=== PATIENT | male | born 1940 | race Caucasian/White ===

== ENCOUNTER → 2018-03-30 13:05 | Outpatient (CLI) | payer OTHER ==
[~2018-03-30 13:05] MED LIST: APAP325 MG PO; ASPIRIN EC81 M1 PO; ASPIRIN325 MG PO; BIOTIN5 MG PO; CARDIZEM 90 MG90 MG PO; FOLTX TABLET1 EACH PO; GLUCOTROL 5 MG T5 MG PO; IBUPROFEN200 MG PO; JANUVIA100 MG PO; NORCO 7.5/325 T1 TA1 PO; OMEPRAZOLE20 M1 PO
[2018-04-25 13:08] VITALS: BMI 28.6
== END | disposition home or self-care (01) ==
LOC: D.LABREF 13:05
DX: M16.12 Unilateral primary osteoarthritis, left hip (principal); Z11.8 Encounter for screening for other infectious and parasitic diseases

== ENCOUNTER 2018-04-13 09:30 | Inpatient (IN) | payer MEDICARE, OTHER ==
[~2018-04-13] VITALS: Ht 177.8 cm; Wt 90.9 kg
[~2018-04-13 09:30] MED LIST changes: -APAP325 MG PO; -ASPIRIN325 MG PO; -FOLTX TABLET1 EACH PO; -JANUVIA100 MG PO; -NORCO 7.5/325 T1 TA1 PO
[2018-04-13 12:34] LABS: BASOPHILS 0.3 % (0-2); EOSINOPHILS 1.5 % (0-7); HEMATOCRIT 45.3 % (42.0-54.0); HEMOGLOBIN 15.6 g/dL (13.5-17.5); IMMATURE GRANULOCYTES 0.1 % (0-5); MCH 31.5 pg (26.0-34.0); MCHC 34.4 g/dL (31.0-37.0); MCV 91.5 fL (80.0-100.0); MEAN PLATELET VOLUME 10.9 fL (7.4-10.4); MONOCYTES 9.5 % (2-11); NEUTROPHILS 58.6 % (40-80); RBC 4.95 10x6/uL (4.20-6.10); RDW 12.9 % (11.5-14.5); WBC 7.2 10x3/uL (4.8-10.8)
[2018-04-13 12:40] LABS: APTT 26.8 SECONDS (22.8-39.4); INR 1.01 (0.85-1.17); PROTIME 12.9 SECONDS (11.6-15.0)
[2018-04-13 13:01] LABS: CALC OSMOLALITY 283 mosm/kg (275-300); CALCIUM 8.9 mg/dL (8.5-10.1); CARBON DIOXIDE 27.3 mmol/L (21.0-32.0); CHLORIDE - SERUM 104 mmol/L (98-107); GLUCOSE 128 mg/dL (74-106); POTASSIUM - SERUM 4.3 mmol/L (3.5-5.1); SODIUM 141 mmol/L (136-145); UREA NITROGEN 16 mg/dL (7-18); eGFR NON AFRICAN AMERICAN 76 mL/min (90-120)
[2018-04-13 13:03] LABS: PLATELET COUNT 189 10x3/uL (130-400)
[2018-04-13 13:09] LABS: APPEARANCE CLEAR (CLEAR); COLOR YELLOW (YELLOW)
[2018-04-13 13:10] LABS: BILIRUBIN NEGATIVE (NEGATIVE); GLUCOSE NEGATIVE (NEGATIVE); KETONE NEGATIVE (NEGATIVE); NITRITE NEGATIVE (NEGATIVE); PROTEIN NEGATIVE (NEGATIVE); UROBILINOGEN NORMAL (NORMAL)
[2018-04-20] MEDS ORDERED: JANUVIA100 MG PO (06:23)
[2018-04-20 06:33] VITALS: BMI 28.7
[2018-04-20 15:49] VITALS: BP 127/69; Ht 177.8 cm; Wt 90.9 kg
[2018-04-20 16:32] LABS: BASOPHILS 0 % (0-2); EOSINOPHILS 0 % (0-7); HEMATOCRIT 41.7 % (42.0-54.0); HEMOGLOBIN 14.3 g/dL (13.5-17.5); IMMATURE GRANULOCYTES 0.2 % (0-5); LYMPHOCYTES 3.3 % (15-50); MCH 31.3 pg (26.0-34.0); MCHC 34.3 g/dL (31.0-37.0); MCV 91.2 fL (80.0-100.0); MEAN PLATELET VOLUME 11.1 fL (7.4-10.4); MONOCYTES 3.3 % (2-11); NEUTROPHILS 93.2 % (40-80); PLATELET COUNT 180 10x3/uL (130-400); RBC 4.57 10x6/uL (4.20-6.10); RDW 12.7 % (11.5-14.5); WBC 12.9 10x3/uL (4.8-10.8)
[2018-04-20 16:34] LABS: ANION GAP 18.7 mmol/L (8-16); CALCIUM 8.3 mg/dL (8.5-10.1); CARBON DIOXIDE 20.8 mmol/L (21.0-32.0); CREATININE - SERUM 1.1 mg/dL (0.6-1.3); POTASSIUM - SERUM 4.5 mmol/L (3.5-5.1)
[2018-04-20 16:57] VITALS: BP 127/69
[2018-04-20 21:11] VITALS: BP 156/89
[2018-04-21 06:26] VITALS: BP 134/74
[2018-04-21 06:38] LABS: BASOPHILS 0 % (0-2); EOSINOPHILS 0 % (0-7); HEMATOCRIT 36.9 % (42.0-54.0); HEMOGLOBIN 12.7 g/dL (13.5-17.5); IMMATURE GRANULOCYTES 0.3 % (0-5); LYMPHOCYTES 4.7 % (15-50); MCHC 34.4 g/dL (31.0-37.0); MONOCYTES 8.3 % (2-11); NEUTROPHILS 86.7 % (40-80); PLATELET COUNT 197 10x3/uL (130-400); RDW 12.7 % (11.5-14.5)
[2018-04-21 07:15] LABS: ALBUMIN 3.1 g/dL (3.4-5.0); ALKALINE PHOSPHATASE 78 U/L (46-116); ALT (SGPT) 58 U/L (10-68); BILIRUBIN - TOTAL 0.56 mg/dL (0.2-1.3); CALC OSMOLALITY 276 mosm/kg (275-300); CALCIUM 8.4 mg/dL (8.5-10.1); CARBON DIOXIDE 23.8 mmol/L (21.0-32.0); CHLORIDE - SERUM 101 mmol/L (98-107); POTASSIUM - SERUM 4.1 mmol/L (3.5-5.1); PROTEIN - SERUM 6.5 g/dL (6.4-8.2); SODIUM 134 mmol/L (136-145); UREA NITROGEN 14 mg/dL (7-18); eGFR NON AFRICAN AMERICAN 76 mL/min (90-120)
[2018-04-21 07:16] LABS: GLUCOSE 246 mg/dL (74-106)
[2018-04-21 08:45] VITALS: BP 118/68
[2018-04-21] MEDS ORDERED: ASPIRIN325 MG PO (12:19)
== END 2018-04-21 14:30 | disposition home health service (06) | DRG 470 ==
LOC: D.SDCHOLD 09:30 → D.MS 04-20 05:00 → D.SDCHOLD 04-20 05:00 → D.MS 04-20 15:42
PROVIDERS: Family Medicine; Orthopaedic Surgery
PROC: 0SRB0JZ Replacement of Left Hip Joint with Synthetic Substitute, Open Approach (ICD-10-PCS; principal; 2018-04-20 07:30)
DX: M16.12 Unilateral primary osteoarthritis, left hip (principal); K21.9 Gastro-esophageal reflux disease without esophagitis; E11.9 Type 2 diabetes mellitus without complications; I10 Essential (primary) hypertension; H91.90 Unspecified hearing loss, unspecified ear

== ENCOUNTER → 2018-04-22 13:55 | Outpatient (CLI) | payer MEDICARE, OTHER ==
[2018-04-20 15:49] VITALS: BMI 28.7
[~2018-04-22 13:55] MED LIST changes: +APAP325 MG PO; +ASPIRIN325 MG PO; +BACTRIM DS PO; +FOLTX TABLET1 EACH PO; +JANUVIA100 MG PO; +NORCO 7.5/325 T1 TA1 PO; +VIBRAMYCIN 100100 MG PO
[2018-04-22 14:11] LABS: HEMATOCRIT 33.9 % (42.0-54.0); HEMOGLOBIN 11.6 g/dL (13.5-17.5)
== END | disposition home or self-care (01) ==
LOC: D.LABREF 13:55
PROVIDERS: Pediatrics Pediatric Gastroenterology
DX: Z98.890 Other specified postprocedural states (principal)

== ENCOUNTER 2018-04-23 20:29 | Inpatient (IN) | payer MEDICARE, OTHER ==
[~2018-04-23] VITALS: Ht 177.8 cm; Wt 90.7 kg
[~2018-04-23 20:29] MED LIST changes: -APAP325 MG PO; -BACTRIM DS PO; -FOLTX TABLET1 EACH PO; -NORCO 7.5/325 T1 TA1 PO; -VIBRAMYCIN 100100 MG PO
[2018-04-23] MEDS ORDERED: NORCO 7.5/325 T1 TA1 PO (20:37)
[2018-04-23 21:20] LABS: BASOPHILS 0.2 % (0-2); EOSINOPHILS 1.3 % (0-7); HEMATOCRIT 34.1 % (42.0-54.0); HEMOGLOBIN 11.7 g/dL (13.5-17.5); IMMATURE GRANULOCYTES 0.3 % (0-5); LYMPHOCYTES 15.5 % (15-50); MCH 30.9 pg (26.0-34.0); MCHC 34.3 g/dL (31.0-37.0); MEAN PLATELET VOLUME 10.4 fL (7.4-10.4); MONOCYTES 9.8 % (2-11); NEUTROPHILS 72.9 % (40-80); RBC 3.79 10x6/uL (4.20-6.10); RDW 12.7 % (11.5-14.5); WBC 10.5 10x3/uL (4.8-10.8)
[2018-04-23 21:28] LABS: PLATELET COUNT 154 10x3/uL (130-400)
[2018-04-23 21:35] LABS: INR 1.01 (0.85-1.17); PROTIME 12.9 SECONDS (11.6-15.0)
[2018-04-23 21:36] LABS: D-DIMER-QUANTITATIVE 2.95 ug/mLFEU (0.20-0.54)
[2018-04-23 21:50] LABS: ALBUMIN 2.7 g/dL (3.4-5.0); ALKALINE PHOSPHATASE 96 U/L (46-116); ALT (SGPT) 64 U/L (10-68); BILIRUBIN - TOTAL 0.85 mg/dL (0.2-1.3); CALC OSMOLALITY 275 mosm/kg (275-300); CALCIUM 8.8 mg/dL (8.5-10.1); CHLORIDE - SERUM 99 mmol/L (98-107); CREATININE - SERUM 1.1 mg/dL (0.6-1.3); GLUCOSE 204 mg/dL (74-106); POTASSIUM - SERUM 3.7 mmol/L (3.5-5.1); PROTEIN - SERUM 6.6 g/dL (6.4-8.2); SODIUM 135 mmol/L (136-145); UREA NITROGEN 13 mg/dL (7-18); eGFR NON AFRICAN AMERICAN 68 mL/min (90-120)
[2018-04-23 22:01] LABS: C-REACTIVE PROTEIN 23.5 mg/dL (0.0-0.9); CKMB 0.6 U/L (0.0-3.6); CREATINE KINASE 455 UL (21-232); PRO BNP 226 pg/mL (0-450); TROPONIN-I < 0.017 ng/mL (0.000-0.060)
[2018-04-23 22:49] VITALS: BP 149/75
[2018-04-23 22:49] LABS: ERYTHROCYTE SEDIMENTATION RATE 53 mm/hr (0-20)
[2018-04-23 23:20] VITALS: BP 142/77
[2018-04-23 23:45] VITALS: BP 145/64
[2018-04-23] MEDS ORDERED: APAP325 MG PO (23:54)
[2018-04-23] MEDS ORDERED: FOLTX TABLET1 EACH PO (23:56)
[2018-04-24 00:37] VITALS: BP 145/64; BMI 28.7
[2018-04-24 04:00] VITALS: BP 131/74
[2018-04-24 09:10] VITALS: BP 147/77
[2018-04-24 10:53] LABS: APPEARANCE CLEAR (CLEAR); BILIRUBIN NEGATIVE (NEGATIVE); COLOR YELLOW (YELLOW); GLUCOSE 1000 mg/dL (NEGATIVE); KETONE NEGATIVE (NEGATIVE); NITRITE NEGATIVE (NEGATIVE); PROTEIN NEGATIVE (NEGATIVE); UROBILINOGEN NORMAL (NORMAL)
[2018-04-24 16:26] VITALS: BP 155/74
[2018-04-24 20:23] VITALS: BP 131/63
[2018-04-25 04:00] VITALS: BP 139/81
[2018-04-25 06:41] LABS: BASOPHILS 0.1 % (0-2); EOSINOPHILS 3.2 % (0-7); HEMATOCRIT 35.5 % (42.0-54.0); HEMOGLOBIN 12.3 g/dL (13.5-17.5); IMMATURE GRANULOCYTES 0.4 % (0-5); LYMPHOCYTES 14.1 % (15-50); MCH 31.2 pg (26.0-34.0); MCHC 34.6 g/dL (31.0-37.0); MCV 90.1 fL (80.0-100.0); MEAN PLATELET VOLUME 10.5 fL (7.4-10.4); MONOCYTES 12.1 % (2-11); NEUTROPHILS 70.1 % (40-80); RBC 3.94 10x6/uL (4.20-6.10); RDW 12.9 % (11.5-14.5)
[2018-04-25 07:03] LABS: ALBUMIN 2.5 g/dL (3.4-5.0); ALKALINE PHOSPHATASE 121 U/L (46-116); BILIRUBIN - TOTAL 1.15 mg/dL (0.2-1.3); C-REACTIVE PROTEIN 13.5 mg/dL (0.0-0.9); CALC OSMOLALITY 281 mosm/kg (275-300); CALCIUM 8.8 mg/dL (8.5-10.1); CARBON DIOXIDE 28.5 mmol/L (21.0-32.0); CHLORIDE - SERUM 104 mmol/L (98-107); GLUCOSE 197 mg/dL (74-106); PROTEIN - SERUM 6.5 g/dL (6.4-8.2); SODIUM 139 mmol/L (136-145); UREA NITROGEN 11 mg/dL (7-18)
[2018-04-25 07:05] LABS: ALT (SGPT) 137 U/L (10-68); CREATININE - SERUM 0.8 mg/dL (0.6-1.3); eGFR NON AFRICAN AMERICAN > 90 mL/min (90-120)
[2018-04-25 07:14] LABS: PLATELET COUNT 200 10x3/uL (130-400); WBC 7.3 10x3/uL (4.8-10.8)
[2018-04-25 08:08] VITALS: BP 133/75
[2018-04-25 13:08] VITALS: Ht 177.8 cm; Wt 90.7 kg
[2018-04-25 16:41] VITALS: BP 140/71
[2018-04-26 05:56] LABS: BASOPHILS 0.2 % (0-2); EOSINOPHILS 2.4 % (0-7); HEMATOCRIT 33.4 % (42.0-54.0); HEMOGLOBIN 11.5 g/dL (13.5-17.5); IMMATURE GRANULOCYTES 0.7 % (0-5); LYMPHOCYTES 14.7 % (15-50); MCH 30.9 pg (26.0-34.0); MCHC 34.4 g/dL (31.0-37.0); MCV 89.8 fL (80.0-100.0); MEAN PLATELET VOLUME 10.5 fL (7.4-10.4); MONOCYTES 11.2 % (2-11); NEUTROPHILS 70.8 % (40-80); PLATELET COUNT 229 10x3/uL (130-400); RBC 3.72 10x6/uL (4.20-6.10); RDW 13.1 % (11.5-14.5); WBC 8.4 10x3/uL (4.8-10.8)
[2018-04-26 06:50] LABS: ALBUMIN 2.4 g/dL (3.4-5.0); ALKALINE PHOSPHATASE 115 U/L (46-116); ALT (SGPT) 109 U/L (10-68); BILIRUBIN - TOTAL 0.91 mg/dL (0.2-1.3); CALCIUM 8.5 mg/dL (8.5-10.1); CARBON DIOXIDE 28.2 mmol/L (21.0-32.0); CHLORIDE - SERUM 99 mmol/L (98-107); GLUCOSE 224 mg/dL (74-106); POTASSIUM - SERUM 3.8 mmol/L (3.5-5.1); PROTEIN - SERUM 6.3 g/dL (6.4-8.2); SODIUM 135 mmol/L (136-145); eGFR NON AFRICAN AMERICAN 76 mL/min (90-120)
[2018-04-26 06:55] LABS: CALC OSMOLALITY 277 mosm/kg (275-300); UREA NITROGEN 15 mg/dL (7-18)
[2018-04-26 09:13] VITALS: BP 147/77
[2018-04-26 12:28] VITALS: BP 143/89
[2018-04-26 16:06] VITALS: BP 113/61
[2018-04-26 19:27] VITALS: BP 145/72
[2018-04-27 05:32] LABS: BASOPHILS 0.2 % (0-2); EOSINOPHILS 3.3 % (0-7); HEMATOCRIT 34.5 % (42.0-54.0); HEMOGLOBIN 11.8 g/dL (13.5-17.5); IMMATURE GRANULOCYTES 0.9 % (0-5); LYMPHOCYTES 13.8 % (15-50); MCH 30.7 pg (26.0-34.0); MCHC 34.2 g/dL (31.0-37.0); MCV 89.8 fL (80.0-100.0); MEAN PLATELET VOLUME 10.2 fL (7.4-10.4); MONOCYTES 12.5 % (2-11); NEUTROPHILS 69.3 % (40-80); PLATELET COUNT 247 10x3/uL (130-400); RBC 3.84 10x6/uL (4.20-6.10); RDW 13.1 % (11.5-14.5); WBC 8.5 10x3/uL (4.8-10.8)
[2018-04-27 05:54] LABS: ALBUMIN 2.6 g/dL (3.4-5.0); ALKALINE PHOSPHATASE 116 U/L (46-116); ALT (SGPT) 83 U/L (10-68); BILIRUBIN - TOTAL 1.02 mg/dL (0.2-1.3); C-REACTIVE PROTEIN 8.2 mg/dL (0.0-0.9); CALC OSMOLALITY 281 mosm/kg (275-300); CALCIUM 8.7 mg/dL (8.5-10.1); CARBON DIOXIDE 27.4 mmol/L (21.0-32.0); CHLORIDE - SERUM 102 mmol/L (98-107); CREATININE - SERUM 0.8 mg/dL (0.6-1.3); GLUCOSE 206 mg/dL (74-106); PROTEIN - SERUM 5.9 g/dL (6.4-8.2); SODIUM 138 mmol/L (136-145); UREA NITROGEN 12 mg/dL (7-18); eGFR NON AFRICAN AMERICAN > 90 mL/min (90-120)
[2018-04-27 05:59] LABS: POTASSIUM - SERUM 4.5 mmol/L (3.5-5.1)
[2018-04-27 09:13] VITALS: BP 132/81
[2018-04-27] MEDS ORDERED: BACTRIM DS PO (09:54)
[2018-04-27] MEDS ORDERED: VIBRAMYCIN 100100 MG PO (09:54)
== END 2018-04-27 13:16 | disposition home health service (06) | DRG 920 ==
LOC: D.ER 20:29 → D.MS 23:16 → OBSVTIME 23:16 → D.MS 04-25 09:30
PROVIDERS: Family Medicine
DX: M96.840 Postprocedural hematoma of a musculoskeletal structure following a musculoskeletal system procedure (principal); J98.11 Atelectasis; R50.82 Postprocedural fever; G89.18 Other acute postprocedural pain; E11.65 Type 2 diabetes mellitus with hyperglycemia; I10 Essential (primary) hypertension; K21.9 Gastro-esophageal reflux disease without esophagitis; Z87.891 Personal history of nicotine dependence

== ENCOUNTER → 2019-05-24 13:22 | Outpatient (CLI) | payer MEDICARE, OTHER ==
[2018-04-25 13:08] VITALS: BMI 28.6
[~2019-05-24 13:22] MED LIST changes: +APAP325 MG PO; +BACTRIM DS PO; +FOLTX TABLET1 EACH PO; +NORCO 7.5/325 T1 TA1 PO; +VIBRAMYCIN 100100 MG PO
== END | disposition home or self-care (01) ==
LOC: D.MRI 13:22
PROVIDERS: ATTEND Orthopaedic Surgery
DX: M54.5 Low back pain (principal)

== ENCOUNTER → 2019-05-30 07:24 | Outpatient (CLI) | payer MEDICARE, OTHER ==
[2018-04-25 13:08] VITALS: BMI 28.6
--- NOTE | ~2019-05-30 | HEMODYNAMI ---
PATIENT:WAI GAMBINO MEDICAL RECORD: [id number] : 38 LOCATION:[facility] ADMISSION DATE: 05/30/19 Generatedon:05/30/20198:35 Patient name: WAI GAMBINO Patient #: [id number] SSN: : [id number] Date of study: 05/30/2019 Page: Of Hemodynamic Procedure Report Patient Data Patient Demographics Procedure consent was obtained First Name: WAI Gender: Male Last Name: MAKI : 1940 Middle Initial: GREGORIA Age: 79 year(s) Patient #: [id number] Race: Unknown Additional ID: [id number] Contact details Address: [place] [address] State: [place] City: [place] Zip code: [address] Past Medical History Allergies Allergen Reaction Date Comments Reported Other allergy 05/26/2019 CODEINE Other allergy 05/30/2019 codeine Admission Admission Data Admission Date: 05/30/2019 Admission Time: 7:24 Procedure Procedure Types Cath Procedure Peripheral Cath Diagnostic Procedure Miscellaneous Aspiration/Injection (Joint) Procedure Description Procedure Date Procedure Date: 05/30/2019 Procedure Start Time: 8:25 Procedure End Time: 8:34 Procedure Staff Name Function Carlos Moody MD Performing Physician JOSÉ CORLEY RT Monitor Joleen Marin RT Monitor Procedure Data Cath Procedure Fluoroscopy Diagnostic fluoroscopy Total fluoroscopy Time: 1.3 time: 1.3 min min Diagnostic fluoroscopy Total fluoroscopy dose: 37 dose: 37 mGy mGy Hemodynamics Rest Pre Cath Intra NCS Post Cath Procedure Log Time Note 7:51:21 KIT EPIDURAL CATHETERIZATION opened to sterile field. 8:00:04 Joleen MORALES(R) sent for patient. Start room use. 8:00:06 Time tracking: Regular hours (M-F 7:00 - 5:00) 8:00:16 Patient received from Outpatients to IR Alert and oriented. Tansferred to table in Supine position. 8:00:18 Signed procedure consent form obtained from patient. 8:00:19 Correct patient and procedure confirmed by team. 8:00:20 8:00:26 Pre-procedure instructions explained to patient. 8:00:28 Pre-op teaching completed and patient verbalized understanding. 8:00:46 Patient allergic to Other allergycodeine 8:00:49 Is patient on blood thinner?Yes. Stopped aspirin x3 days ago 8:00:54 8:01:13 Lumbar area was prepped with betadine and draped in sterile fashion 8::18 Alarms reviewed by R. N. 8::19 Sharps counted by scrub and verified by R.N. 8::21 8:17:36 Physician arrived 8:20:39 --------ALL STOP TIME OUT------ 8:20:40 Final Timeout: patient, procedure, and site verified with staff and physician. All members of the team are in agreement. 8:21:10 Lumbar site verified by team. 8::16 Procedure started. 8::16 Full Disclosure recording started 8:25:52 Local anesthetic to Lumbar area with Lidocaine 1% by Carlos Moody MD.INITIAL ACCESS ONLY 8:28:18 SPINAL NEEDLE 20GX3.5 IN ([id number]) opened to sterile field. 8:33:32 Procedure ended.(Physican Out) 8:33:43 Fluoroscopy time 01.30 minutes. 8:33:47 Flurop Dose total: 37 8:33:47 Fluoroscopy dose: 37 mGy 8:34:07 Post Lumbar area:stable, clean and dry 8:34:13 Procedure and supply charges have been captured, reviewed, submitted and are correct. 8:34:38 Post procedure instruction explained to patient.Patient verbalizes understanding. 8:34:44 Procedure ended. 8:34:44 Full Disclosure recording stopped 8:34:48 End room use (Document Last) Device Usage Item Name Manufacture Quantity Catalog Hospital Part Current Minima l Lot# / Number Charge Number Stock Stock Serial# Code KIT EPIDURAL Teleflex 1 [id number] CATHETERIZATION SPINAL NEEDLE B. Dhaliwal 1 [id number] 1 20GX3.5 IN ([id number]) Signature Audit [place] Stage Time Signature Unsigned Intra-Procedure 05/30/2019 JOSÉ CORLEY RT 8:35:02 AM (R) [facility] [address] [place] [address]
== END | disposition home or self-care (01) ==
LOC: D.RAD 05-19 11:00
PROVIDERS: ATTEND Orthopaedic Surgery
DX: M54.5 Low back pain (principal)